=== PATIENT | female | born 1990 | race Caucasian/White ===

== ENCOUNTER 2023-12-15 17:37 | Emergency (ER) | payer SELFPAY ==
[~2023-12-15] VITALS: Ht 167.6 cm; Wt 53.9 kg
[2023-12-15 17:41] VITALS: TEMP 98.5
[2023-12-15] MEDS ORDERED: SYNTHROID0.1 MG/TAB PO (19:05)
[2023-12-15 19:10] VITALS: BP 136/86; PULSE 84
== END 2023-12-15 19:12 | disposition home or self-care (01) ==
LOC: COL.ER 17:37
DX: E03.9 Hypothyroidism, unspecified (principal); T38.1X6A Underdosing of thyroid hormones and substitutes, initial encounter; F17.200 Nicotine dependence, unspecified, uncomplicated; Z91.138 Patient's unintentional underdosing of medication regimen for other reason